=== PATIENT | male | born 2000 | race Caucasian/White ===

== ENCOUNTER 2023-08-12 12:40 | Outpatient (REF) | payer OTHER, SELFPAY ==
--- NOTE | ~2023-08-12 | MR_ITS ---
EXAMINATION: MR CERVICAL SPINE WITHOUT CONTRAST CLINICAL INFORMATION: Right arm radiculopathy. Neck pain. COMPARISON: None available. TECHNIQUE: Multiplanar, multisequential imaging of the cervical spine was performed without contrast. Limited study with extensive motion artifacts. FINDINGS: VERTEBRAL BODIES AND PARASPINAL SOFT TISSUES: The marrow signal is within normal limits. No compression fractures are seen. There is a slight posterior subluxation at the C6-C7 level. Mild leftward cervical spinal curvature noted. The paraspinal soft tissues are normal. The vertebral artery flow-voids are maintained. The imaged lung apices are clear. CERVICOMEDULLARY JUNCTION AND VISUALIZED POSTERIOR FOSSA: The craniovertebral junction and imaged portions of the brain parenchyma appear normal. No cord signal abnormality or syrinx is seen. SPINAL LEVELS: C2-C3: No focal disc protrusion, central canal stenosis, or foraminal narrowing. C3-C4: Right-sided uncovertebral joint spurring and bulging disc result in moderate right foraminal encroachment. No central canal stenosis. C4-C5: Very mild disc bulge. No central canal stenosis. Mild bilateral foraminal narrowing. C5-C6: Mild posterior subluxation and disc bulge with endplate spurring. No central canal stenosis. Severe right foraminal narrowing and [id number] left foraminal encroachment. C6-C7: Posterior subluxation and mild disc bulge without central canal stenosis. Moderate left foraminal narrowing. C7-T1: No disc pathology. Patent central canal and foramina. MR/MR cervical spine wo con IMPRESSION: 1. Limited study with extensive motion artifacts. 2. Moderate right foraminal narrowing due to uncovertebral joint spurring at the C3-C4 level. 3. Mild disc bulge and endplate spurring at the C5-C6 level with severe right foraminal encroachment. 4. Posterior subluxation and disc bulge at the C6-C7 level with moderate left foraminal narrowing.
== END 2023-08-12 12:41 | disposition home or self-care (01) ==
LOC: HO.MRI 12:40
PROVIDERS: Visit Provider Family Medicine Sports Medicine
DX: G54.2 Cervical root disorders, not elsewhere classified (principal)
CPT/HCPCS: 72141